=== PATIENT | female | born 1945 | race African-American/Black ===

== ENCOUNTER 2020-10-08 22:05 | Emergency (ER) | payer MEDICARE, OTHER ==
[~2020-10-08] VITALS: Ht 162.6 cm; Wt 84.3 kg
--- NOTE | 2020-10-08 22:34 | PHYS DOC ---
Past History Past Medical History: Asthma, Other Past Medical History Sarcoid Past Surgical History: Hysterectomy, Tonsillectomy, Tubal ligation, Other Smoking: Non-smoker Alcohol Use: None Drug Use: None General Adult EDM: Chief Complaint: CHEST PAIN HPI: HPI: ".. My ..had knee surgery.. and I ve been helping him around,, and .. I got this central chest pain.. It seems like .., I could touch it... but it then started going into my arm.. on Lt...".. I may have strained something helping..him.." Patient is a 75 year old female dependent who presents with with onset of chest pain. Patient has somewhat central chest pain that is reproducible movement. Pain seems to be along the sternum. Patient has had previous cardiac history. Has been helping her move after his knee surgery. Patient denies any other specific trauma. No recent travel. No specific ill contacts. Normally follows with [facility] for care. Does have a history of hypertension and asthma. Has had past medical history of hysterectomy tonsillectomy and tubal ligation. Patient is a non-smoker. Normally healthy. Review of Systems: Review of Systems: Constitutional: Denies fever or chills Eyes: Denies change in visual acuity HENT: Denies nasal congestion or sore throat Respiratory: Denies cough or shortness of breath Cardiovascular: Complaints of central chest wall pain . GI: Denies abdominal pain, nausea, vomiting, bloody stools or diarrhea : Denies dysuria Musculoskeletal: Denies back pain or joint pain Integument: Denies rash Neurologic: Denies headache, focal weakness or sensory changes Endocrine: Denies polyuria or polydipsia Lymphatic: Denies swollen glands Psychiatric: Denies depression or anxiety Family History: Family History: Noncontributory to presentation Current Medications: Current Meds: See nursing for home meds Allergies: Allergies: Atorvastatin, latex, banana, seasonal Physical Exam: PE: Constitutional: Well developed, well nourished, mild distress, non-toxic appearance. [] HENT: Normocephalic, atraumatic, bilateral external ears normal, oropharynx moist, no oral exudates, nose normal. [] Eyes: PERRLA, EOMI, conjunctiva normal, no discharge. [] Neck: Normal range of motion, no tenderness, supple, no stridor. [] Cardiovascular:Heart rate regular rhythm, no murmur [] PMI slightly to the left Lungs & Thorax: Bilateral breath sounds equal apex with maybe a few scattered wheezes on auscultation [The] patient does have tenderness along sternal edge. Abdomen: Bowel sounds normal, soft, no tenderness, no masses, no pulsatile masses. Old surgery scars Skin: Warm, dry, no erythema, no rash. [] Back: No tenderness, no CVA tenderness. [] Extremities: No tenderness, no cyanosis, no clubbing, ROM intact, no edema. No cording appreciated Neurologic: Alert and oriented X 3, normal motor function, normal sensory function, no focal deficits noted. [] Psychologic: Affect anxious, judgement normal, mood normal. [] EKG: EKG: My interpretation of EKG shows a sinus rhythm at 66 bpm. There is some nonspecific specific changes in the left leads. But no findings acute STEMI of contralateral changes. [] Radiology/Procedures: Radiology/Procedures: [][place] [id number] IMAGING REPORT Signed PATIENT: AGUILA GRAJEDA ACCOUNT: [id number] : 1945 LOCATION: ER AGE: 75 SEX: F EXAM STATUS: REG ER ORD. PHYSICIAN: PREM GUILLEN MD REASON: Chest pain, left arm pain PROCEDURE: CHEST PA & LATERAL Exam: Chest 2 views INDICATION: Chest pain, left arm pain TECHNIQUE: Frontal and lateral views the chest Comparisons: None FINDINGS: The cardiomediastinal silhouette and pulmonary vessels are within normal limits. Subtle patchy bibasilar airspace disease. No pleural effusion. IMPRESSION: Subtle bibasilar airspace disease may represent atelectasis or developing co nsolidative process. Electronically signed by: Austen Vallejo MD (10/08/2020 11:34 PM) [facility] DICTATED AND SIGNED BY: AUSTEN VALLEJO MD DATE: 10/08/20 [id number] CC: PREM GUILLEN MD; TIN RICHTER MD ~MTH0 0 Heart Score: C/O Chest Pain: Yes HEART Score for Chest Pain: HEART Score for Chest Pain Response (Comments) Value History Slighlty/Non-Suspicious 0 ECG Normal 0 Age > 65 2 Risk Factors 1 or 2 Risk Factors 1 Troponin < Normal Limit 0 Total 3 Risk Factors: Risk Factors: DM, Current or recent (<one month) smoker, HTN, HLP, family history of CAD, obesity. Risk Scores: Score 0 - 3: 2.5% MACE over next 6 weeks - Discharge Home Score 4 - 6: 20.3% MACE over next 6 weeks - Admit for Clinical Observation Score 7 - 10: 72.7% MACE over next 6 weeks - Early Invasive Strategies Course & Med Decision Making: Course & Med Decision Making Pertinent Labs and Imaging studies reviewed. (See chart for details) Follow-up primary care. Return if any concerns whatsoever. Follow-up Covid results. Take Zithromax 250 mg a day for 5 days. Self isolate. Take Tylenol and ibuprofen for discomfort. Patient currently declines admission at this time. Impression: 1. Chest wall pain 2. Bibasilar atypical atelectasis versus pneumonia- suspect viral 3. Hx Asthma 4. Hx HTN [] Dragon Disclaimer: Dragon Disclaimer: This electronic medical record was generated, in whole or in part, using a voice recognition dictation system. Departure Departure: Referrals: TIN RICHTER MD (PCP) Scripts Azithromycin (ZITHROMAX) 250 Mg Tablet 250 MG PO DAILY for ANTI-BIOTIC for 5 Days, #5 TAB 0 Refills Prov: PREM GUILLEN MD 10/09/20 Dragon Disclaimer This chart was dictated in whole or in part using Voice Recognition software in a busy, high-work load, and often noisy Emergency Department environment. It may contain unintended and wholly unrecognized errors or omissions. PREM GUILLEN MD Oct 08, 2020 22:34
[2020-10-08] MEDS ORDERED: ASPIRIN CHEWABLE 81 MG TABLET. PO ONE (23:00)
[2020-10-08] MEDS ORDERED: IV RINGERS SOLUTION,LACTATED 1,000 ML IV SCH (23:00)
[2020-10-08 23:32] LABS: BASO % 1 % (0-3); EOS % 1 % (0-3); HEMATOCRIT 38.4 % (36.0-47.0); HEMOGLOBIN 12.8 g/dL (12.0-15.5); LYMPH % 23 % (24-48); MEAN CORPUSCULAR HEMOGLOBIN 29 pg (25-35); MEAN CORPUSCULAR HGB CONC 34 g/dL (31-37); MEAN CORPUSCULAR VOLUME 88 fL (79-100); MONO # 0.4 x10^3/uL (0.0-1.1); MONO % 8 % (0-9); NEUT # 3.1 x10^3uL (1.8-7.7); NEUT % 68 % (31-73); PLATELET COUNT 232 x10^3/uL (140-400); RED BLOOD COUNT 4.38 x10^6/uL (3.50-5.40); RED CELL DISTRIBUTION WIDTH 14.9 % (11.5-14.5); WHITE BLOOD COUNT 4.6 x10^3/uL (4.0-11.0)
--- NOTE | 2020-10-08 23:37 | RAD ---
Exam: Chest 2 views INDICATION: Chest pain, left arm pain TECHNIQUE: Frontal and lateral views the chest Comparisons: None FINDINGS: The cardiomediastinal silhouette and pulmonary vessels are within normal limits. Subtle patchy bibasilar airspace disease. No pleural effusion. IMPRESSION: Subtle bibasilar airspace disease may represent atelectasis or developing consolidative process. Electronically signed by: Austen Reynoso MD (10/08/2020 11:34 PM) [facility]
[2020-10-08 23:40] LABS: CALCIUM 8.9 mg/dL (8.5-10.1); GFR 65.6
--- NOTE | 2020-10-08 23:49 | EKG ---
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
[2020-10-08 23:54] LABS: ALBUMIN 3.7 g/dL (3.4-5.0); C REACTIVE PROTEIN 2.9 mg/L (0-3.3); DIRECT BILIRUBIN 0.1 mg/dL (0.0-0.2); TOTAL BILIRUBIN 0.4 mg/dL (0.2-1.0); TOTAL PROTEIN 7.3 g/dL (6.4-8.2)
[2020-10-09] MEDS ORDERED: AZIT250T PO (01:40)
[2020-10-09 01:57] VITALS: BP 128/80
[2020-10-09] MEDS ORDERED: AZITHROMYCIN 250 MG TABLET. PO ONE (02:00)
[2020-10-09 20:12] LABS: THYROID STIM HORMONE (TSH) 1.324 uIU/mL (0.358-3.740)
== END 2020-10-09 01:48 | disposition home or self-care (01) ==
LOC: ER 22:05
DX: R07.89 Other chest pain (principal); J45.909 Unspecified asthma, uncomplicated; I10 Essential (primary) hypertension; Z20.822 Contact with and (suspected) exposure to COVID-19
CPT/HCPCS: 36415; 71046; 80048; 80061; 80076; 82550; 83690; 83735; 83880; 84443; 84484; 85025; 85379; 85610; 85730; 86140; 93005; 99285; C9803; U0003; U0005